=== PATIENT | male | born 1995 | race Caucasian/White ===

== ENCOUNTER 2022-12-06 09:08 | Emergency (ER) | payer OTHER ==
[2022-12-06] MEDS ORDERED: Sodium Chloride 0.9% 1,000 ML IV ONE (09:41)
[2022-12-06] MEDS ORDERED: Ketorolac 30 MG/ML SDV IVPUSH ONE (09:56)
[2022-12-06] MEDS ORDERED: Ondansetron 4 MG/2 ML SDV IVPUSH ONE (09:56)
[2022-12-06 10:39] LABS: CARBON DIOXIDE,CO2 27.7 mmol/L (21.0-32.0); POTASSIUM,K 4.6 mmol/L (3.5-5.1)
== END 2022-12-06 11:07 | disposition home or self-care (01) ==
LOC: MW.ED 09:08
DX: K92.2 Gastrointestinal hemorrhage, unspecified (principal); Z72.0 Tobacco use
CPT/HCPCS: 36415; 80053; 81001; 83605; 83690; 85025; 85610; 85730; 86140; 99283

== ENCOUNTER 2023-09-06 08:00 | Emergency (ER) | payer OTHER, BC | END 2023-09-06 09:48 | LOC: MW.ED 08:00 | DX: Z53.21 Procedure and treatment not carried out due to patient leaving prior to being seen by health care provider (principal) ==

== ENCOUNTER 2024-02-04 10:22 | Emergency (ER) | payer OTHER, BC | END 2024-02-04 10:50 | disposition left against medical advice (07) | LOC: MW.ED 10:22 | DX: Z53.21 Procedure and treatment not carried out due to patient leaving prior to being seen by health care provider (principal) ==